=== PATIENT | male | born 1995 | race Native Hawaiian/Other Pacific Islander ===

== ENCOUNTER 2019-02-25 06:10 | Emergency (ER) | payer SELFPAY ==
--- NOTE | 2019-02-25 07:40 | Emergency Department Report ---
ED Palpitations HPI - General Chief Complaint: Arrhythmia/Palpitations Stated Complaint: ELEVATED HEART RATE Time Seen by Provider: 02/25/19 07:37 Source: patient Mode of arrival: Ambulatory Limitations: No Limitations - History of Present Illness Initial Comments: 23 yo male woke up this morning felt like his heart was racing. Pt states he has been felling sad off and one x 1yr after his father had a heart attack. Pt denies suicidal ideations. States he's been under a lot of stress since his Father illness. He's accompained by his family and they agree that he is under stress since his Father's illness. Pt denies chest pain, no nausea no vomiting no diaphoresis. No recent illnesses. Denies drug, alcohol use. He's a non smoker. MD Complaint: "heart racing" ED Review of Systems ROS: Stated complaint: ELEVATED HEART RATE Other details as noted in HPI ED Physical Exam - General Limitations: No Limitations General appearance: alert, in no apparent distress - Eye Eye exam: Present: normal appearance - ENT ENT exam: Present: normal exam - Neck Neck exam: Present: normal inspection - Respiratory Respiratory exam: Present: normal lung sounds bilaterally. Absent: respiratory distress, wheezes, rales, rhonchi - Cardiovascular Cardiovascular Exam: Present: regular rate, normal rhythm, normal heart sounds - GI/Abdominal GI/Abdominal exam: Present: soft - exam: Present: normal inspection - Extremities Exam Extremities exam: Present: normal inspection - Back Exam Back exam: Present: normal inspection - Neurological Exam Neurological exam: Present: alert, oriented X3 - Psychiatric Psychiatric exam: Present: normal affect - Skin Skin exam: Present: warm, dry, intact, normal color ED Course Vital Signs 02/25/19 02/25/19 06:14 08:18 Temperature 97.4 F L 98.3 F Pulse Rate 97 H 75 Respiratory 18 18 Rate Blood Pressure 141/78 123/60 O2 Sat by Pulse 98 99 Oximetry ED Medical Decision Making - EKG Data EKG shows normal: sinus rhythm - EKG Data Interpretation: normal EKG - Medical Decision Making EKG NSR . Pt with no c/o chest pain he's calm and cooperative . Pt and family both agree that his symptoms today are related to stress reaction about his fathers current health status. Pt mother plans to follow up with PCP for treatment of his anxiety vs stress. Critical Care Time: No Critical care attestation.: If time is entered above; I have spent that time in minutes in the direct care of this critically ill patient, excluding procedure time. ED Disposition Clinical Impression: Panic attack as reaction to stress Disposition: DC-01 TO HOME OR SELFCARE Is pt being admited?: No Does the pt Need Aspirin: No Condition: Stable Instructions: Anxiety (ED) Additional Instructions: Follow up with your primary care doctor or Dr. Steven Pal. Return to ER for Chest Pain, sob and fever. Referrals: PRIMARY MD IGNACIO [Primary Care Provider] - 3-5 Days STEVEN PAL MD [Staff Physician] - 3-5 Days Forms: Work/School Release Form(ED)
[2019-02-25 08:27] VITALS: BP 123/60
== END 2019-02-25 08:25 | disposition home or self-care (01) ==
LOC: ED 06:10
DX: F41.0 Panic disorder [episodic paroxysmal anxiety] (principal)
CPT/HCPCS: 93005; 93010; 99282